=== PATIENT | female | born 1955 | race African-American/Black ===

== ENCOUNTER 2021-03-06 12:51 | Emergency (ER) | payer OTHER ==
[2021-03-06 13:02] VITALS: BMI 25.2
[2021-03-06 14:29] LABS: BASO % 1.1 % (0-2.0); EOS % 7.3 % (0-4.5); HEMATOCRIT 38.7 % (32.4-45.2); HEMOGLOBIN 13.4 GM/dL (10.7-15.3); LYMPH % 27.4 % (8-40); MCH 31.2 pg (25.7-33.7); MCHC 34.5 g/dl (32.0-36.0); MEAN CELL VOLUME 90.5 fl (80-96); MEAN PLT VOLUME 7.3 fl (7.5-11.1); MONO % 9.3 % (3.8-10.2); NEUT % 54.9 % (42.8-82.8); PLATELET COUNT 281 K/MM3 (134-434); RBC 4.28 M/mm3 (3.60-5.2); WHITE BLOOD COUNT 8.2 K/mm3 (4.0-10.0)
[2021-03-06 14:36] LABS: INR 1.09 (0.83-1.09); PROTHROMBIN TIME (PATIENT) 13.1 SEC (9.7-13.0)
[2021-03-06 14:39] LABS: URINE APPEARANCE CLEAR; URINE BILIRUBIN NEGATIVE (NEGATIVE); URINE COLOR YELLOW; URINE GLUCOSE (UA) NEGATIVE (NEGATIVE); URINE KETONE TRACE (NEGATIVE); URINE LEUK ESTERASE NEGATIVE (NEGATIVE); URINE NITRITE NEGATIVE (NEGATIVE); URINE PROTEIN NEGATIVE (NEGATIVE)
[2021-03-06 14:50] LABS: CHLORIDE 103 mmol/L (98-107); SODIUM 138 mmol/L (136-145)
[2021-03-06 14:54] LABS: ALBUMIN 4.3 g/dl (3.4-5.0); ANION GAP 4 MMOL/L (8-16); BLOOD UREA NITROGEN 11.8 mg/dL (7-18); CO2 31 mmol/L (21-32); GLUCOSE,RANDOM 83 mg/dL (74-106); LIPASE 116 U/L (73-393)
[2021-03-06 14:57] LABS: CREATININE 1.3 mg/dL (0.55-1.3); SGOT/AST 21 U/L (15-37); SGPT/ALT 18 U/L (13-61)
[2021-03-06 14:58] LABS: BILIRUBIN,TOTAL 1.1 mg/dL (0.2-1)
[2021-03-06 14:59] LABS: ALK PHOS 82 U/L (45-117); TOT PROT 8.5 g/dl (6.4-8.2)
[2021-03-06 17:46] VITALS: BP 121/76; PULSE 76; TEMP 98.9
== END 2021-03-06 18:15 | disposition home or self-care (01) ==
LOC: JER 12:51
DX: R07.89 Other chest pain (principal)
CPT/HCPCS: 36415; 71046-TC-FY; 80053; 81003; 82550; 83690; 84443; 84484; 85025; 85610; 87086; 93005; 93010; 99285-25

== ENCOUNTER 2023-01-03 00:01 | Emergency (ER) | payer OTHER ==
[2023-01-03 00:07] VITALS: BP 137/84; PULSE 83; RESP 18; TEMP 97.8; BMI 23.3
== END 2023-01-03 02:05 | disposition home or self-care (01) ==
LOC: JER 00:01
DX: S61.215A Laceration without foreign body of left ring finger without damage to nail, initial encounter (principal); W26.0XXA Contact with knife, initial encounter
CPT/HCPCS: 99282-25

== ENCOUNTER 2023-03-16 10:37 | Emergency (ER) | payer OTHER ==
[2023-03-16 10:46] VITALS: BMI 22.4
[2023-03-16] MEDS ORDERED: ACETAMINOPHEN 1000 MG/100 ML BAG IVPB ONE (11:52)
[2023-03-16] MEDS ORDERED: ACETAMINOPHEN INJECTION 100 ML IVPB ONE (11:58)
[2023-03-16 12:33] LABS: BASO % 0.7 % (0-2.0); EOS % 1.5 % (0-4.5); HEMATOCRIT 39.9 % (32.4-45.2); HEMOGLOBIN 13.5 GM/dL (10.7-15.3); LYMPH % 28.5 % (8-40); MCH 30.8 pg (25.7-33.7); MCHC 33.8 g/dl (32.0-36.0); MEAN PLT VOLUME 7.3 fl (7.5-11.1); MONO % 8.5 % (3.8-10.2); NEUT % 60.8 % (42.8-82.8); PLATELET COUNT 237 10^3/uL (134-434); RBC 4.38 M/mm3 (3.60-5.2); RDW 12.8 % (11.6-15.6); WHITE BLOOD COUNT 6.9 K/mm3 (4.0-10.0)
[2023-03-16 12:40] LABS: POTASSIUM 4.6 mmol/L (3.5-5.1)
[2023-03-16 12:42] LABS: ALBUMIN 3.8 g/dl (3.4-5.0); CALCIUM 9.8 mg/dL (8.5-10.1); MAGNESIUM 2.3 mg/dL (1.8-2.4)
[2023-03-16 12:45] LABS: CREATININE 1.2 mg/dL (0.55-1.3)
[2023-03-16 12:47] LABS: BILIRUBIN,TOTAL 0.8 mg/dL (0.2-1); TOT PROT 6.9 g/dl (6.4-8.2)
[2023-03-16 13:07] VITALS: TEMP 98
[2023-03-16 13:43] VITALS: BP 121/72; PULSE 58; RESP 18
== END 2023-03-16 14:03 | disposition home or self-care (01) ==
LOC: JER 10:37
PROC: 3E033NZ Introduction of Analgesics, Hypnotics, Sedatives into Peripheral Vein, Percutaneous Approach (ICD-10-PCS; principal; 2023-03-16)
DX: M54.6 Pain in thoracic spine (principal); I48.92 Unspecified atrial flutter; M54.9 Dorsalgia, unspecified; M54.2 Cervicalgia; R00.2 Palpitations
CPT/HCPCS: 36415; 71045-TC-FY; 80053; 83735; 84443; 84484; 85025; 93005; 93010; 99285-25